=== PATIENT | male | born 1975 | race Caucasian/White ===

== ENCOUNTER 2016-04-23 06:00 | Day surgery (SDC) | payer OTHER ==
[~2016-04-23] VITALS: Ht 180.3 cm; Wt 82.1 kg
[2016-04-23] MEDS ORDERED: TOPAMAX100 MG PO (06:22)
[2016-04-23] MEDS ORDERED: KEPPRA1000 MG PO (06:22)
[2016-04-23] MEDS ORDERED: NAPROXEN250 MG PO (06:22)
[2016-04-23] MEDS ORDERED: ZANTAC150 MG PO (06:23)
[2016-04-23] MEDS ORDERED: GEODON60 MG PO (06:23)
[2016-04-23] MEDS ORDERED: OMEPRAZOLE20 M1 PO (06:24)
[2016-04-23] MEDS ORDERED: [UNRECOGNIZED DRUG - REMARK] PO (06:24)
[2016-04-23 06:36] VITALS: BP 118/72; Ht 180.3 cm; Wt 82.1 kg
[2016-04-23 07:01] LABS: HEMATOCRIT 38.1 % (42.0-54.0); HEMOGLOBIN 12.9 g/dL (13.5-17.5); MCH 29.7 pg (26.0-34.0); MCHC 33.9 g/dL (31.0-37.0); MCV 87.6 fL (80.0-100.0); MEAN PLATELET VOLUME 11.4 fL (7.4-10.4); RBC 4.35 10x6/uL (4.20-6.10); RDW 12.1 % (11.5-14.5); WBC 9.3 10x3/uL (4.8-10.8)
[2016-04-23 07:11] LABS: APTT 24.7 SECONDS (22.8-39.4); INR 1.02 (0.85-1.17); PROTIME 13.2 SECONDS (11.6-15.0)
[2016-04-23 07:29] LABS: ALBUMIN 3.9 g/dL (3.4-5.0); ALKALINE PHOSPHATASE 82 U/L (46-116); ALT (SGPT) 55 U/L (10-68); BILIRUBIN - TOTAL 0.38 mg/dL (0.2-1.3); CALC OSMOLALITY 287 mosm/kg (275-300); CALCIUM 8.5 mg/dL (8.5-10.1); CARBON DIOXIDE 27.5 mmol/L (21.0-32.0); CHLORIDE - SERUM 107 mmol/L (98-107); CREATININE - SERUM 0.9 mg/dL (0.6-1.3); GLUCOSE 92 mg/dL (74-106); POTASSIUM - SERUM 4.5 mmol/L (3.5-5.1); PROTEIN - SERUM 6.9 g/dL (6.4-8.2); SODIUM 143 mmol/L (136-145); UREA NITROGEN 20 mg/dL (7-18); eGFR NON AFRICAN AMERICAN > 90 mL/min (90-120)
--- NOTE | 2016-05-07 10:18 | HP ---
PATIENT: TAMARA CHOWDHURY MEDICAL RECORD: [id number] ACCOUNT: [id number] LOCATION:[facility] : 75 ADMISSION DATE: 04/23/16 HISTORY AND PHYSICAL EXAMINATION CHIEF COMPLAINT: Reflux. HISTORY OF PRESENT ILLNESS: The patient has undergone upper endoscopy by me. The patient had Donis's esophagus. He has intractable gastroesophageal reflux. The patient did have some hiatal hernia present. The patient's anatomy is going to be best suited for a laparoscopic hiatal hernia procedure such as a Leslie procedure rather than a transoral incisionless fundoplication. He does have a history of hepatitis C. He has been treated with interferon up in [place]. He desires an antireflux procedure. We talked about postoperative gas bloat. We talked about the possibility that he would not be able to vomit after the procedure. We talked about bleeding requiring emergency reoperation, as well as possible need for splenectomy. We talked about the 1 in 20 chance of an open procedure. PAST MEDICAL AND SURGICAL HISTORY: Hepatitis C. He is unsure whether he has a history of cirrhosis or not. History of myringotomy tubes, arthritis, gastroesophageal reflux, seizures, last seizure was about a year ago. SOCIAL HISTORY: The patient was a former smoker, 82-[id number]-sbaw smoker. ALLERGIES: ASPIRIN, PEARS. HOME MEDICATIONS: Geodon, Keppra, naproxen, sodium, omeprazole, Topamax and Zantac. REVIEW OF SYSTEMS: Negative for diabetes or thyroid problems. Negative for renal disease, coronary artery disease or hypertension. The review of systems is negative other than as is described above. PHYSICAL EXAMINATION: GENERAL: The patient does not appear acutely ill. He does appear chronically ill. VITAL SIGNS: Reviewed. HEAD: External ears appear normal. EYES: Extraocular movements are intact. NECK: Trachea is midline. CHEST: No intercostal retractions. PULMONARY: Nonlabored. ABDOMEN: Nontender. There is an umbilical hernia, which is not reducible. EXTREMITIES: No peripheral cyanosis. INTEGUMENT: No rash, no ulcerations. PSYCHIATRIC: Normal affect. IMPRESSION: Intractable gastroesophageal reflux despite maximal medical therapy. PLAN: Laparoscopic hiatal hernia repair, possible open procedure. HISTORY AND PHYSICAL [id number] TAMARA CHOWDHURY TRANSINT:[id number] Voice Confirmation ID: [id number] DOCUMENT ID: [id number] GERRI YUSUF MD at 1018 CC: GERRI RODRIGEZ MD, HOWIE OSUNA MCKINNEY, GREGORY SCOTT MD, [id number] and JANIE JOSHI DICTATION DATE: 04/23/16 1034 CLINICAL NURSE MANAGER: 04/23/16 1143 [facility] [place] 04/23/16 [place] [id number] [place] [id number]
--- NOTE | 2016-05-07 10:18 | SS ---
PATIENT:TAMARA CHOWDHURY :75 MEDICAL RECORD: [id number] DISCHARGE SUMMARY ADMISSION DATE: 04/23/16 DISCHARGE DATE: 04/23/16 The patient presents and is here for a laparoscopic Leslie fundoplication. We discussed his reflux symptoms. I discussed in detail the operative procedures as well as the risks, possible complications and alternatives to the procedure. He states that actually his reflux is very well controlled on medication. He states that once in a while, still have some breakthrough reflux if he eats chili mac. Otherwise, things are much improved. He states that when he was at [place], he was not getting his reflux medicine as he was prescribed and that his reflux was pretty significant there. He was having volume reflux symptoms there as well. This consisted of vomiting on his pillow. He states that this all improved. He would like to cancel his operation. I told him that the Donis's that he has is a premalignant condition and it would be an indication for an antireflux procedure, but at this time, I would like to avoid undergoing an antireflux procedure. I told them that in the future, we could always discuss him undergoing an antireflux procedure should his symptoms worsen. TRANSINT:[id number] Voice Confirmation ID: [id number] DOCUMENT ID: [id number] GERRI YUSUF MD at 1018 CC: GERRI RODRIGEZ MD, HOWIE OSUNA MCKINNEY, GREGORY SCOTT MD, [id number] and JANIE JOSHI DICTATION DATE: 04/23/16 1045 DIRECTOR OF RESIDENCE LIFE: 04/24/16 0049 [facility] 04/23/16 [facility] [address] [place] [address]
== END 2016-04-23 10:45 | disposition home or self-care (01) ==
LOC: D.OPS 06:00
PROVIDERS: Anesthesiology
DX: K21.9 Gastro-esophageal reflux disease without esophagitis (principal); Z01.810 Encounter for preprocedural cardiovascular examination; Z01.811 Encounter for preprocedural respiratory examination; Z01.812 Encounter for preprocedural laboratory examination